=== PATIENT | female | born 1995 | race Two or more races ===

== ENCOUNTER 2020-02-03 15:15 | Inpatient (IN) | payer OTHER ==
[~2020-02-03] VITALS: Ht 154.9 cm; Wt 3.2 kg
[2020-02-09] MEDS ORDERED: PRENATAL TABLE1 EAC4 PO (08:54)
== END 2020-02-12 13:10 | disposition home or self-care (01) | DRG 788 ==
LOC: OB/GYN 02-09 06:33 → LDR 02-09 06:33 → O/R 02-09 20:56 → OB/GYN 02-09 23:52 → LDR 02-15 15:15
PROVIDERS: ADMIT Obstetrics & Gynecology; ATTEND Obstetrics & Gynecology
PROC: 4A1HXFZ Monitoring of Products of Conception, Cardiac Rhythm, External Approach (ICD-10-PCS; 2020-02-09)
PROC: 10D00Z1 Extraction of Products of Conception, Low, Open Approach (ICD-10-PCS; principal; 2020-02-09 20:00)
DX: O76 Abnormality in fetal heart rate and rhythm complicating labor and delivery (principal); Z3A.39 39 weeks gestation of pregnancy; Z37.0 Single live birth; Z20.828 Contact with and (suspected) exposure to other viral communicable diseases

== ENCOUNTER 2021-04-05 13:05 | Inpatient (IN) | payer OTHER ==
[~2021-04-05] VITALS: Ht 152.4 cm; Wt 2.7 kg
[~2021-04-05 13:05] MED LIST: PRENATAL TABLE1 EAC4 PO
== END 2021-04-07 13:07 | disposition home or self-care (01) | DRG 785 ==
LOC: OBS/DEL 13:05 → LDR 17:18 → OB/GYN 22:17
PROVIDERS: ADMIT Obstetrics & Gynecology; ATTEND Obstetrics & Gynecology
PROC: 0UB70ZZ Excision of Bilateral Fallopian Tubes, Open Approach (ICD-10-PCS; 2021-04-05)
PROC: 4A1HXCZ Monitoring of Products of Conception, Cardiac Rate, External Approach (ICD-10-PCS; 2021-04-05)
PROC: 10D00Z1 Extraction of Products of Conception, Low, Open Approach (ICD-10-PCS; principal; 2021-04-05 19:00)
DX: O34.211 Maternal care for low transverse scar from previous cesarean delivery (principal); Z20.822 Contact with and (suspected) exposure to COVID-19; Z30.2 Encounter for sterilization; Z3A.38 38 weeks gestation of pregnancy; Z37.0 Single live birth